=== PATIENT | female | born 1955 | race Caucasian/White ===

== ENCOUNTER 2025-03-01 10:06 | Emergency (ER) | payer OTHER, BC ==
--- NOTE | 2025-03-01 10:51 | ER ---
Nurse's Notes [facility] Name: Radha Esteban Age: 69 yrs Sex: Female : 1955 Arrival Date: 03/01/2025 Time: 10:06 Bed IW2 Private MD: Diagnosis: wound check Presentation: 03/01 10:36 Chief complaint: Patient states: left foot pain post partial left foot amputation aa5 approximately 6 weeks ago, pt reports pain is not getting better. Pt currently taking methocarbamol, Tylenol #3, and gabapentin for pain. Coronavirus screen: At this time, the client does not indicate any symptoms associated with coronavirus-19. Ebola Screen: Patient denies travel to an Ebola-affected area in the 21 days before illness onset. Initial Sepsis Screen: Does the patient meet any 2 criteria? No. Patient's initial sepsis screen is negative. Does the patient have a suspected source of infection? No. Patient's initial sepsis screen is negative. Risk Assessment: Do you want to hurt yourself or someone else? Patient reports no desire to harm self or others. Onset of symptoms was 2024. 10:36 Acuity: CHARLA 4 aa5 10:36 Method Of Arrival: Ambulatory aa5 Historical: - Allergies: 10:39 No Known Allergies; aa5 - Home Meds: 10:39 Brilinta 90 mg oral tablet 2 times per day [Active]; acetaminophen-codeine 300-30 mg aa5 Oral tablet Q6-8hrs PRN [Active]; methocarbamol 750 mg Oral tablet every 8 hours [Active]; gabapentin 600 mg oral tablet 3 times per day [Active]; - PMHx: 10:39 peripheral vascular disease; aa5 - PSHx: 10:39 Left foot partial amputation; aa5 - Immunization history:: Adult Immunizations unknown. - Infectious Disease History:: Denies. - Social history:: Smoking status: Patient reports the use of cigarette tobacco products. Vital Signs: 10:36 BP 161 / 74; Pulse 92; Resp 18 S; Temp 97.8(TE); Pulse Ox 96% on R/A; Weight 70.31 kg aa5 (R); Height 5 ft. 5 in. (R); 10:36 Body Mass Index 25.79 (70.31 kg, 165.1 cm) aa5 ED Course: 10:11 Patient arrived in ED. cj3 10:13 America Woods MD is Attending Physician. sw6 10:36 Arm band placed on. aa5 10:39 Triage completed. aa5 11:02 Fatoumata Woods RN is Primary Nurse. iw Administered Medications: 11: Drug: HYDROcodone-acetaminophen PO 5 mg-325 mg 1 tabs PO once Route: PO; iw Outcome: 10:51 Discharge ordered by . sw6 11:02 Discharged to home via wheelchair, with family, iw 11:02 Condition: good 11:02 Discharge instructions given to patient, family, Instructed on discharge instructions, follow up and referral plans. Demonstrated understanding of instructions, follow-up care, 11:03 Patient left the ED. iw Signatures: Fatoumata Woods RN RN iw Miracle Weaver RN RN aa5 America Woods MD MD sw6 Marielle Cortez cj3
--- NOTE | 2025-03-01 10:51 | EDPHYS ---
Physician Documentation [facility] Name: Radha Esteban Age: 69 yrs Sex: Female : 1955 Arrival Date: 03/01/2025 Time: 10:06 Bed IW2 Private MD: WILMA Physician America Woods HPI: 03/01 10:47 This 69 yrs old Female presents to ER via Ambulatory with complaints of Post sw6 Surgical Complications, Left Foot Pain. 10:47 The patient presents from home for evaluation for left foot pain. She had a sw6 transmetatarsal amputation approximately 6 weeks ago at [facility] by vascular surgery. She did follow-up with them last week and reports things are healing well. She does take gabapentin, Tylenol with codeine as well as Robaxin at home and reports she is still having pain. She has a follow-up appointment with her surgeons next week. No drainage from the wound. No fevers. No history of diabetes or high blood pressure. 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 Here for evaluation.. Historical: - Allergies: 10:39 No Known Allergies; aa5 - Home Meds: 10:39 Brilinta 90 mg oral tablet 2 times per day [Active]; acetaminophen-codeine 300-30 mg aa5 Oral tablet Q6-8hrs PRN [Active]; methocarbamol 750 mg Oral tablet every 8 hours [Active]; gabapentin 600 mg oral tablet 3 times per day [Active]; - PMHx: 10:39 peripheral vascular disease; aa5 - PSHx: 10:39 Left foot partial amputation; aa5 - Immunization history:: Adult Immunizations unknown. - Infectious Disease History:: Denies. - Social history:: Smoking status: Patient reports the use of cigarette tobacco products. ROS: 10:47 MS/extremity: Positive for pain, sw6 10:47 Constitutional: Negative for fever, chills, and weight loss, Cardiovascular: Negative for chest pain, palpitations, and edema, Respiratory: Negative for shortness of breath, cough, wheezing, and pleuritic chest pain, Abdomen/GI: Negative for abdominal pain, nausea, vomiting, diarrhea, and constipation, 10:47 All other systems are negative, Exam: 10:47 Constitutional: This is a well developed, well nourished patient who is awake, alert, sw6 and in no acute distress. Cardiovascular: Regular rate and rhythm with a normal S1 and S2. No gallops, murmurs, or rubs. Normal PMI, no JVD. No pulse deficits. Respiratory: Lungs have equal breath sounds bilaterally, clear to auscultation and percussion. No rales, rhonchi or wheezes noted. No increased work of breathing, no retractions or nasal flaring. 10:47 Skin: Intact wound to her left foot status post transmetatarsal amputation. There is no drainage, warmth or tenderness. There is no fluctuance noted to the wound.. Vital Signs: 10:36 BP 161 / 74; Pulse 92; Resp 18 S; Temp 97.8(TE); Pulse Ox 96% on R/A; Weight 70.31 kg aa5 (R); Height 5 ft. 5 in. (R); 10:36 Body Mass Index 25.79 (70.31 kg, 165.1 cm) aa5 MDM: 10:47 Differential diagnosis: Postoperative pain. sw6 10:47 ED course: The patient presents from home for evaluation for left foot pain status post sw6 transmetatarsal amputation performed approximately 6 weeks ago at [facility] by vascular surgery. She has been following up with them in clinic and they are happy with her progress. She is on gabapentin 600 mg 3 times a day as well as time with codeine and Robaxin for pain. No fevers. No drainage from her wound. Her vitals are stable in the ER. Her wound is intact. She has no drainage or fluctuance noted from her wound. There is no erythema, warmth or swelling noted to her wound. Will give the patient dose of pain medication here in the ER. Recommend she follow-up with her surgeon for continued care. She remained stable here in the ER and is okay for discharge home with PCP follow-up.. 10:51 Medical Screening Exam initiated 10:51 Data reviewed: vital signs, nurses notes. sw6 Administered Medications: 11:02 Drug: HYDROcodone-acetaminophen PO 5 mg-325 mg 1 tabs PO once Route: PO; iw Disposition Summary: 03/01/25 10:51 Discharge Ordered Notes: Location: [facility] Problem: chronic sw6 Symptoms: are unchanged sw6 Condition: Stable sw6 Diagnosis - wound check sw6 Discharge Instructions: - Discharge Summary Sheet sw6 - Wound Care, Adult sw6 Forms: - Medication Reconciliation Form 6 - Antibiotic Education 6 - Prescription Opioid Use sw6 - Patient Portal Instructions 6 - Leadership Thank You Letter Signatures: Fatoumata Woods RN Miracle Billingsley RN RN aa5 America Woods MD MD
[2025-03-01] MEDS ORDERED: HYDROCODONE/APAP 5/325 MG TAB ONE (10:53)
[2025-03-01 11:28] VITALS: BP 161/74; TEMP 97.8; O2SAT 96
== END 2025-03-01 11:03 | disposition home or self-care (01) ==
LOC: ER 10:06
DX: G89.18 Other acute postprocedural pain (principal); Z89.422 Acquired absence of other left toe(s); Z72.0 Tobacco use

== ENCOUNTER 2025-06-26 12:46 | Emergency (ER) | payer OTHER, BC ==
[2025-06-26] MEDS ORDERED: NA CHLORIDE 0.9% 2,000 ML ONE (13:06)
[2025-06-26 13:26] LABS: Absolute Lymphocytes (CBC) 1.8 K/uL (0.7-4.9); Hematocrit 9.8 % (36.0-45.0); MCH 18.2 pg (27.0-35.0); MCHC 27.3 g/dL (32.0-36.0); MCV 66.5 fL (80-100); MPV 7.6 fL (7.6-11.3); Nucleated RBC Absolute Count 0.4 (0-0); Nucleated Red Blood Cells % 3.7 % (0-0); RBC Red Blood Cell Count 1.47 M/uL (3.86-4.86); White Blood Count 11.00 thou/uL (4.3-10.9)
[2025-06-26 13:32] LABS: Hemoglobin 2.7 g/dL (12.0-15.0)
[2025-06-26 13:34] LABS: PT Prothrombin Time 28.9 SECONDS (10-13.0); PTT, Activated Partial Thromb 32.8 SECONDS (27.2-37.4); Protime INR 2.63
[2025-06-26] MEDS ORDERED: NA CHLORIDE 0.9% 1,000 ML ONE (13:45)
[2025-06-26 13:51] LABS: ALT/SGPT 15 U/L (13-56); Albumin 2.7 g/dL (3.4-5.0); Albumin/Globulin Ratio 0.9 (1.1-1.8); Alkaline Phosphatase 128 U/L (45-117); Anion Gap 22.4 mEq/L (5.0-15.0); BUN Blood Urea Nitrogen 32 mg/dL (7-18); Globulin 3.0 g/dL (2.3-3.5); Glucose Level 157 mg/dL (74-106); Lipase 11 U/L (13-75); NT PRO-BNP 1271 pg/mL (<125); Potassium 4.4 mEq/L (3.5-5.1); Troponin High Sensitivity 9.0 pg/mL (<58.9)
[2025-06-26 13:54] LABS: AST/SGOT < 10 U/L (15-37)
--- NOTE | 2025-06-26 14:05 | RAD REPORT ---
EXAM: CT Head Brain Wo Cont HISTORY: AMS COMPARISON: 10/21/2021 TECHNIQUE: Multiple contiguous axial images were obtained for a CT of the brain without contrast. Sag ittal and coronal reformats were performed. One or more of the following dose reduction techniques were used: Automated exposure control, adjus tment of the mA and kV according to patient size, and iterative reconstruction. Unless otherwise specified, incidental findings do not require dedicated imaging follow-up. FINDINGS: No evidence of hydrocephalus, intracranial hemorrhage, or extra-axial fluid collection. Mild brain atrophy with mild periventricular and deep white matter chronic microvascular ischemic ch anges present. Stable hypoattenuating left subinsular focus, could represent a prominent perivascular space or sequelae of remote ischemia. The calvarium is intact. The visualized paranasal sinuses and mastoid air cells are essentially clear . IMPRESSION: No evidence of acute intracranial abnormality. Stable chronic findings as above.
[2025-06-26 14:08] LABS: Influenza A Ag Negative; Influenza B Ag Negative; SARS-CoV-2 Antigen Rapid Res Negative (Negative)
--- NOTE | 2025-06-26 14:19 | RAD REPORT ---
EXAM: CTA Abdomen and Pelvis Angio HISTORY: [facility] MAIN GI BLEED COMPARISON: CT abdomen and pelvis of the same day TECHNIQUE: Multiple contiguous axial images were obtained a CTA of the abdomen and pelvis, performed following IV contrast administration. Sagittal and coronal 3-D MIP reformats were performed. One or more of the following dose reduction techniques were used: Automated exposure control, adjustment of the mA and kV according to patient size, and iterative reconstruction. Unless otherwise specified, incidental findings do not require dedicated imaging follow-up. FINDINGS: LOWER LUNGS: No focal infiltrates or masses. PLEURAL SPACE: No pleural effusion or pneumothorax. LIVER: Unremarkable. Gallbladder is moderately distended with layering hyperdense sludge. Prominent caliber of the common bile duct measuring up to 9 mm. KIDNEYS: Unremarkable. SPLEEN: Unremarkable. PANCREAS: Unremarkable. BOWEL: Unremarkable apart from mild nonspecific fat stranding in the presacral space and mesial recta l fat more so on the right. RETROPERITONEUM: No lymphadenopathy BONES: Degenerative changes in the spine. Disc bulges at L3-4 and L4-5 ABDOMINAL AORTA: Patent, with mild to moderate atherosclerotic plaque1 CELIAC TRUNK: Patent SMA: Patent TERRI: Patent RENAL ARTERIES: Bilateral renal arteries are patent without significant atherosclerotic disease. Acce ssory right renal artery noted. ILIAC ARTERIES: Patent. Postsurgical changes with metallic sutures along the proximal common femoral arteries. IMPRESSION: No hemodynamically significant stenosis or occlusion. Mild to moderate atherosclerotic changes of the aorta. Other findings as detailed above, better evaluated on the CT abdomen and pelvis of the same day.
--- NOTE | 2025-06-26 14:26 | EDPHYS ---
Physician Documentation [facility] Name: Radha sEteban Age: 69 yrs Sex: Female : 1955 Arrival Date: 06/26/2025 Time: 12:46 Bed 16 Private MD: ED Physician Sugar Ambrose HPI: 06/26 13:11 This 69 yrs old Female presents to ER via Wheelchair with complaints of Altered Mental sp3 Status, General Weakness. 13:11 69-year-old female with history of peripheral vascular disease and transmetatarsal sp3 amputation at [facility] by vascular surgery, now presents to the ED with chief complaint altered mental status, generalized weakness, pale skin and low blood pressure. Patient is slow to respond and therefore ROS, history and physical limited. Significant other is at bedside and states that this is not her normal self and she is normally very awake and talkative. The patient does arouse, she denies any dark stools, abdominal pain, vomiting, or any other signs or symptoms other than pain on the left foot. She denies any headache, neck pain or any other symptoms. Again ROS, history physical is limited.. Historical: - Home Meds: 13:00 duloxetine oral 2 times per day [Active]; Eliquis 5 mg oral tablet 2 times per day iw [Active]; Brilinta 90 mg Oral tablet 2 times per day [Active]; acetaminophen-codeine 300-30 mg Oral tablet Q6-8hrs PRN [Active]; gabapentin 600 mg oral tablet 3 times per day [Active]; methocarbamol 500 mg oral tablet 3 times per day [Active]; - PMHx: 13:00 peripheral vascular disease; iw - PSHx: 13:00 left foot partial amputation; iw - Immunization history:: Adult Immunizations up to date. - Infectious Disease History:: Denies. - Social history:: Smoking status: unknown. ROS: 13:13 Unable to obtain ROS due to altered mental status, sp3 Exam: 13:13 Constitutional: The patient appears Patient is tachycardic at 120 with hypotension with sp3 blood pressure in the low 90s systolically. She is slow to respond and extremely pale. 13:13 Unable to obtain exam due to altered mental status, 13:16 ECG was reviewed by the Attending Physician. EKG demonstrates sinus tachycardia at 105 sp3 bpm with normal intervals, normal QRS, normal axis nonspecific diffuse ST/T changes without evidence of acute ischemia. Vital Signs: 12:58 BP 94 / 45; Pulse 118; Resp 16; Pulse Ox 100% on R/A; iw 13:19 BP 89 / 44; Pulse 98; Resp 16; Temp 98.2; Pulse Ox 100% ; Weight 71.67 kg; Height 5 ft. db 5 in. ; 13:30 BP 91 / 44; Pulse 98; Resp 17; Pulse Ox 100% ; db 13:55 BP 83 / 46; Pulse 98; Resp 16; Temp 98.2; Pulse Ox 98% ; db 14:15 BP 95 / 44; Pulse 86; Resp 15; Temp 97.7; Pulse Ox 98% ; db 14:40 BP 107 / 58; Pulse 75; Resp 16; Temp 97.6; Pulse Ox 98% ; db 15:10 BP 96 / 60; Pulse 79; Resp 16; Temp 97.6; Pulse Ox 96% ; db 15:25 BP 112 / 61; Pulse 75; Resp 16; Temp 97.6; Pulse Ox 95% on R/A; db 13:19 Body Mass Index 26.29 (71.67 kg, 165.1 cm) db 13:55 BLOOD TRANSFUSION START db 14:15 1ST UNIT COMPLETE. 2ND UNIT RBC STARTED db 14:40 2ND UNIT RBC COMPLETE db 15:10 3RD UNIT RBC STARTED db 15:25 HAND OFF TO [facility] db Gilles Coma Score: 13:55 Eye Response: to voice(3). Motor Response: obeys commands(6). Verbal Response: db oriented(5). Total: 14. 15:00 Eye Response: spontaneous(4). Motor Response: obeys commands(6). Verbal Response: db oriented(5). Total: 15. MDM: 13:00 Medical Screening Exam initiated sp3 13:13 Data reviewed: vital signs, nurses notes, old medical records, lab test result(s), EKG, sp3 radiologic studies. ED course: 69-year-old female with altered mental status, generalized weakness and pallor with hypotension and tachycardia. Differential diagnosis is broad and includes GI bleed, dehydration, sepsis, electrolyte disturbance, among others. Sepsis bolus has been ordered and full sepsis workup is pending as well as type and screen, CT scan of the head as well as chest abdomen pelvis with IV contrast taking a very broad approach. Disposition pending workup and patient course with probable admission versus transfer depending on final diagnosis.. 13:36 ED course: Hemoglobin at 2.7. 2 units PRBCs emergency release ordered. Will change CT sp3 abdomen pelvis to GI protocol.. 14:47 ED course: Discussed with automatic pad making machine operator at [facility]. We will proceed with sp3 emergency transfer. INR also now back at 2.6 so we will give FFP as well as 2 more units of PRBCs. Vital signs continue to improve. GI is available at [facility] and will be consulted by automatic pad making machine operator team. Patient will be transferred via air ambulance if possible.. 06/26 13:05 Order name: Type And Screen sp3 06/26 13:05 Order name: BNP; Complete Time: 14:01 3 06/26 13:05 Order name: Blood Culture Adult (2) 3 06/26 13:05 Order name: CBC with Diff 3 06/26 13:05 Order name: CMP; Complete Time: 14:01 3 06/26 13:05 Order name: Lactate w/ 2H reflex if indic.; Complete Time: 14:07 sp3 06/26 13:05 Order name: Protime (+inr); Complete Time: 13:35 sp3 06/26 13:05 Order name: Ptt, Activated; Complete Time: 13:35 sp3 06/26 13:05 Order name: Troponin HS; Complete Time: 14:01 sp3 06/26 13:05 Order name: COVID-19 Ag + Flu A+B Ag; Complete Time: 14:14 sp3 06/26 13:06 Order name: Lipase; Complete Time: 14:01 3 06/26 13:08 Order name: Glucose, Ancillary Testing; Complete Time: 13:33 EDMS 06/26 13:40 Order name: Packed RBC Leukored EDDE 06/26 13:40 Order name: RBC Leukored Pheresis EDDE 06/26 14:09 Order name: Ghost Lactate-NO COLLECT Timer EDDE 06/26 14:54 Order name: RBC Leukoreduced (Pheresis 2) EDDE 06/26 15:04 Order name: ABO/RH no charge EDDE 06/26 15:04 Order name: Fresh Frozen Plasma EDDE 06/26 13:05 Order name: CT Head Brain wo Cont; Complete Time: 14:06 sp3 06/26 13:40 Order name: Pelvis Angio; Complete Time: 14:22 EDMS 06/26 13:40 Order name: Abdomen Angio; Complete Time: 14:22 EDMS 06/26 13:40 Order name: Abdomen ; Complete Time: 14:28 EDMS 06/26 13:05 Order name: Cardiac monitoring; Complete Time: 13:40 sp3 06/26 13:05 Order name: EKG - Nurse/Tech; Complete Time: 13:40 sp3 06/26 13:05 Order name: IV Saline Lock - Large Bore; Complete Time: 13:40 sp3 06/26 13:05 Order name: Labs collected and sent; Complete Time: 13:40 sp3 06/26 13:05 Order name: O2 Per Protocol; Complete Time: 13:40 sp3 06/26 13:05 Order name: O2 Sat Monitoring; Complete Time: 13:40 sp3 06/26 13:05 Order name: Vital Signs; Complete Time: 13:40 sp3 06/26 13:05 Order name: NPO; Complete Time: 13:41 sp3 06/26 14:12 Order name: Labs - recollect needed: collect abo\E\rh no charge; Complete Time: 14:34 bd Administered Medications: 13:27 Drug: NS 0.9% IV (30 ml/kg) 30 ml/kg IV at bolus once; Sepsis Protocol; to be given as db a bolus over 90 minutes Route: IV; Rate: bolus; Site: left antecubital; 15:25 Follow up: IV Status: Completed infusion; IV Intake: 2150.1ml db 15:00 Drug: Pantoprazole IV 8 mg/hr IV at 25 ml/hr continuous; (Standard dilution is 80 mg in db 250 mL NS) Route: IV; Rate: 25 ml/hr; Site: left antecubital; 15:25 Follow up: Response: No adverse reaction; IV Status: Infusion continued upon transfer db 15:00 Drug: Pantoprazole IVP 40 mg IVP once Route: IVP; Site: left antecubital; db 15:25 Follow up: Response: No adverse reaction db Disposition: 13:15 Critical Care:. sp3 Disposition Summary: 06/26/25 14:25 Transfer Ordered Notes: Transfer Location: [facility] sp3 Reason: Higher level of care sp3 Condition: Stable sp3 Problem: new sp3 Symptoms: have worsened sp3 Accepting Physician: KEILY FERNANDEZ GI and hospitalist(06/26/25 15:44) db Diagnosis - Critical anemia, probable GI bleed, hypovolemic shock sp3 Forms: - Medication Reconciliation Form sp3 - SBAR form sp3 Critical care time excluding procedures: 13:15 Critical care time: Bedside Care: 10 minutes, Consultation: 10 minutes, Family sp3 Intervention: 10 minutes. Total time: 30 minutes Signatures: Dispatcher [employer] EDMS Mack JessikaFatoumata Guerrero, RN RN iw Schuyler Page RN RN ll1 Sugar Ambrose MD MD sp3 Yumiko Lawrence RN RN Adilia Dahl, PA-C PA-C sb4 Alejandro Rojas, FLOWER CUTTER-C FLOWER CUTTER-Cdr5 Corrections: (The following items were deleted from the chart) 13:05 13:05 PROBNP+C.LAB.BRZ ordered. EDMS EDMS 13:05 13:05 BLOOD CULTURE*+BA.LAB.BRZ ordered. EDMS EDMS 13:05 13:05 CBC+H.LAB.BRZ ordered. EDMS EDMS 13:05 13:05 COMPREHENSIVE METABOLIC PANEL+C.LAB.BRZ ordered. EDMS EDMS 13:06 13:05 LACTATE+C.LAB.BRZ ordered. EDMS EDMS 13:06 13:05 PROTIME (+INR)+COAG.LAB.BRZ ordered. EDMS EDMS 13:06 13:05 PTT, ACTIVATED+COAG.LAB.BRZ ordered. EDMS EDMS 13:06 13:05 Troponin High Sensitivity+C.LAB.BRZ ordered. EDMS EDMS 13:06 13:05 TYPE AND SCREEN+BB.LAB.BRZ ordered. EDMS EDMS 13:06 13:06 Chest Abdomen Pelvis W Con+CT.RAD.BRZ ordered. EDMS EDMS 13:06 13:06 Head Brain Wo Cont+CT.RAD.BRZ ordered. EDMS EDMS 13:06 13:06 UA Rfx Brandon Cult if indicated+U.LAB.BRZ ordered. EDMS EDMS 13:06 13:06 COVID-19 Ag + Flu A+B Ag+I.LAB.BRZ ordered. EDMS EDMS 14:21 13:35 PACKED RBC LEUKORED+BB.LAB.BRZ ordered. EDMS EDMS 14:21 13:38 ABO/RH typing ordered. EDMS EDMS 14:21 13:38 Antibody Screen ordered. EDMS EDMS 14:55 14:55 PACKED RBC LEUKORED+BB.LAB.BRZ ordered. EDMS EDMS 15:03 14:55 FRESH FROZEN PLASMA+BB.LAB.BRZ ordered. EDMS EDMS 15:03 14:57 ABO/RH typing ordered. EDMS EDMS 15:44 14:25 TBD C GI and hospitalist sp3 db
--- NOTE | 2025-06-26 14:26 | ER ---
Nurse's Notes [facility] Name: Radha Esteban Age: 69 yrs Sex: Female : 1955 Arrival Date: 06/26/2025 Time: 12:46 Bed 16 Private MD: Diagnosis: Critical anemia, probable GI bleed, hypovolemic shock Presentation: 06/26 12:58 Chief complaint: Spouse and/or significant other states: very weak and pale since last iw night, could not get herself into the car. Coronavirus screen: At this time, the client does not indicate any symptoms associated with coronavirus-19. Ebola Screen: No symptoms or risks identified at this time. Initial Sepsis Screen: Does the patient meet any 2 criteria? HR > 90 bpm. Does the patient have a suspected source of infection?. Risk Assessment: Do you want to hurt yourself or someone else? Patient reports no desire to harm self or others. 12:58 Method Of Arrival: Wheelchair iw 12:59 Onset of symptoms was June 25, 2025. 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 - Infectious Disease History:: Denies. - Social history:: Smoking status: unknown. Screenin:38 [facility] ED Fall Risk Assessment (Adult) History of falling in the last 3 months, db including since admission No falls in past 3 months (0 pts) Confusion or Disorientation No (0 pts) Intoxicated or Sedated No (0 pts) Impaired Gait No (0 pts) Mobility Assist Device Used No (0 pt) Altered Elimination No (0 pt) Score/Fall Risk Level 0 - 2 = Low Risk Oriented to surroundings, Maintained a safe environment. Abuse screen: Denies threats or abuse. Denies injuries from another. Nutritional screening: No deficits noted. Tuberculosis screening: No symptoms or risk factors identified. Assessment: 13:37 Reassessment: Patient appears in no apparent distress at this time. Patient and/or db family updated on plan of care and expected duration. Pain level reassessed. General: Appears in no apparent distress. uncomfortable, emaciated, Behavior is calm, cooperative, flat. Neuro: Patient appears in no apparent distress at this time. Patient and/or family updated on plan of care and expected duration. Pain level reassessed. Level of Consciousness is obeys commands, lethargic, Oriented to person, place, time, situation. Derm: Skin is pale. 14:40 Reassessment: UNITS 1 AND 2 RBC COMPLETED . SEE BLOOD TRANSFUSION DOCUMENTATION. db 15:00 Reassessment: Patient appears in no apparent distress at this time. Patient and/or db family updated on plan of care and expected duration. Pain level reassessed. Patient is alert, oriented x 3, equal unlabored respirations, skin warm/dry/pink. PATIENT NOW AWAKE WITH COLOR. General: Appears in no apparent distress. comfortable, Behavior is calm, cooperative. Neuro: Level of Consciousness is awake, alert, obeys commands, Oriented to person, place, time, situation. 15:00 Pain: Denies pain. db 15:30 Reassessment: 4 UNITS OF FFPS SIGNED OUT TO [facility] RN. UNIT 3 AND 4 RBC CONTINUED db BY EMS. Vital Signs: 12:58 BP 94 / 45; Pulse 118; Resp 16; Pulse Ox 100% on R/A; iw 13:19 BP 89 / 44; Pulse 98; Resp 16; Temp 98.2; Pulse Ox 100% ; Weight 71.67 kg; Height 5 ft. db 5 in. ; 13:30 BP 91 / 44; Pulse 98; Resp 17; Pulse Ox 100% ; db 13:55 BP 83 / 46; Pulse 98; Resp 16; Temp 98.2; Pulse Ox 98% ; db 14:15 BP 95 / 44; Pulse 86; Resp 15; Temp 97.7; Pulse Ox 98% ; db 14:40 BP 107 / 58; Pulse 75; Resp 16; Temp 97.6; Pulse Ox 98% ; db 15:10 BP 96 / 60; Pulse 79; Resp 16; Temp 97.6; Pulse Ox 96% ; db 15:25 BP 112 / 61; Pulse 75; Resp 16; Temp 97.6; Pulse Ox 95% on R/A; db 13:19 Body Mass Index 26.29 (71.67 kg, 165.1 cm) db 13:55 BLOOD TRANSFUSION START db 14:15 1ST UNIT COMPLETE. 2ND UNIT RBC STARTED db 14:40 2ND UNIT RBC COMPLETE db 15:10 3RD UNIT RBC STARTED db 15:25 HAND OFF TO [facility] db Vitals: 13:19 Cardiac Rhythm Assessment Sinus rhythm. db Victor Coma Score: 13:55 Eye Response: to voice(3). Motor Response: obeys commands(6). Verbal Response: db oriented(5). Total: 14. 15:00 Eye Response: spontaneous(4). Motor Response: obeys commands(6). Verbal Response: db oriented(5). Total: 15. ED Course: 12:49 Patient arrived in ED. mc7 12:51 Sugar Ambrose MD is Attending Physician. sp3 13:00 Triage completed. iw 13:06 Inserted saline lock: 20 gauge in left antecubital area, using aseptic technique. Blood iw collected. Flushed with 10 mL NS. 13:27 sent to lab. Second set of blood cultures drawn EKG done. db 13:[address] via stretcher. db 13:36 Yumiko Lawrence, RN is Primary Nurse. db 13:40 Arm band placed on Patient placed in an exam room. db 13:49 CT Head Brain wo Cont In Process Unspecified. EDMS 13:49 Pelvis Angio In Process Unspecified. EDMS 13:49 Abdomen Angio In Process Unspecified. EDMS 13:49 Abdomen In Process Unspecified. EDMS 13:50 Provided Education on: Blood Transfusion. db 14:00 Client placed on continuous cardiac and pulse oximetry monitoring. NIBP monitoring db applied. wafer production worker on. Pulse ox on. NIBP on. 14:31 initiated transfer to [facility]. bd 15:13 pt accepted in transfer to [facility] by dr Ott admin approval given by dedrick Cm, pt going to [facility] rm 206. 15:25 No provider procedures requiring assistance completed. Patient transferred, IV remains db in place. 15:25 Patient has correct armband on for positive identification. Bed in low position. Call db light in reach. Side rails up X2. Warm blanket given. Pillow given. 15:25 Report given to [facility]. db 15:28 pt will be transported by [facility]. bd Administered Medications: 13:27 Drug: NS 0.9% IV (30 ml/kg) 30 ml/kg IV at bolus once; Sepsis Protocol; to be given as db a bolus over 90 minutes Route: IV; Rate: bolus; Site: left antecubital; 15:25 Follow up: IV Status: Completed infusion; IV Intake: 2150.1ml db 15:00 Drug: Pantoprazole IV 8 mg/hr IV at 25 ml/hr continuous; (Standard dilution is 80 mg in db 250 mL NS) Route: IV; Rate: 25 ml/hr; Site: left antecubital; 15:25 Follow up: Response: No adverse reaction; IV Status: Infusion continued upon transfer db 15:00 Drug: Pantoprazole IVP 40 mg IVP once Route: IVP; Site: left antecubital; db 15:25 Follow up: Response: No adverse reaction db Medication: 15:30 VIS not applicable for this client. Blood products: PRBCs X 4 units given. FFP X 4 db units given. Intake: 15:25 IV: 2150ml; Total: 2150ml. db Outcome: 14:25 ER care complete, transfer ordered by . sp3 15:25 Transferred by helicopter to [facility], Transfer form completed. db X-rays sent w/ patient. 15:25 critical 15:25 Instructed on the need for transfer, 15:31 Patient left the ED. db Signatures: Dispatcher [employer] EDMS Jessika Giron Irene, RN KELLY iw Schuyler Page RN RN ll1 Sugar Ambrose MD MD sp3 Yumiko Lawrence RN RN db Nannette Simon, RN RN mc7 Corrections: (The following items were deleted from the chart) 15:51 13:37 Reassessment: Patient appears in no apparent distress at this time. Patient db and/or family updated on plan of care and expected duration. Pain level reassessed. Patient is alert, oriented x 3, equal unlabored respirations, skin warm/dry/pink. db 15:51 13:37 Neuro: Level of Consciousness is awake, alert, obeys commands, Oriented to db person, place, time, situation, db 17:10 15:44 Patient left the ED. db db
--- NOTE | 2025-06-26 14:27 | RAD REPORT ---
EXAMINATION: CT Abdomen Pelvis Wo Contrast CLINICAL INDICATION: Female, 69 years old. GI BLEED TECHNIQUE: CT abdomen and pelvis was performed, without IV contrast, as per department protocol. Axia l, sagittal and coronal reconstructions were obtained. One or more of the following dose reduction techniques were used: Automated exposure control, adjustment of the mA and kV according to the patien t size, and iterative reconstruction. Unless otherwise specified, incidental findings do not require dedicated imaging follow-up. COMPARISON: CTA abdomen and pelvis of the same day FINDINGS: The lack of intravenous contrast limits the sensitivity of this exam for evaluation of solid visceral organs, vascular structures, and retroperitoneum. LOWER CHEST: The visualized lung bases are clear. LIVER: Normal in size and contour. No focal lesion. BILIARY SYSTEM: Moderately distended gallbladder with no appreciable wall thickening. Layering mildly hyperdense sludge. Prominent caliber of the common bile duct up to 9 mm without radiopaque calculi. SPLEEN: Normal size. No focal lesion. PANCREAS: No mass, ductal dilation, or edwar-pancreatic fluid. ADRENALS: Normal; no mass. KIDNEYS AND URETERS: Normal size and contour. No hydronephrosis. URINARY BLADDER: Normal contour. GASTROINTESTINAL TRACT: No evidence of bowel obstruction, significant free fluid, free air or abscess . Nonspecific fat stranding in the presacral space and mesorectal fat, could relate to nonspecific colitis. Mild distal colonic diverticulosis without evidence of acute diverticulitis. Interrogation o f this exam in conjunction with the CT angiogram performed concomitantly reveals no evidence of extravasation along the bowel. APPENDIX: Appendix not visualized, but no inflammatory changes in region of appendix. LYMPH NODES: No lymphadenopathy. MUSCULOSKELETAL: No acute or suspicious osseous abnormality. ADDITIONAL FINDINGS: None. IMPRESSION: Interrogation of the bowel in conjunction with the CT angiogram performed concomitantly, reveals no e vidence of abnormal contrast extravasation to suggest active bleeding. Prominent caliber of the common bile duct up to 9 mm. No radiopaque calculi. There is concern for a distal obstructing calculus or stricture, additional evaluation by MRCP or ERC P would be more helpful. Nonspecific mild fat stranding in the presacral space and mesorectal fat, could reflect infectious or inflammatory proctitis or distal colitis.
[2025-06-26] MEDS ORDERED: NA CHLORIDE 0.9% 250 ML ONE (14:55)
[2025-06-26] MEDS ORDERED: PANTOPRAZOLE 40 MG INJ ONE (14:55)
[2025-06-26 15:48] VITALS: O2SAT 100
[2025-06-26 15:50] VITALS: TEMP 98.2
[2025-06-26 15:51] VITALS: BP 91/44
[2025-06-26 15:53] LABS: White Blood Cell Scan OK (OK)
[2025-06-26 15:54] LABS: Anisocytosis 1+; Blood Morphology Comment NOTED (NOT SEEN); Hypochromasia 2+; Microcytosis 1+
== END 2025-06-26 15:44 | disposition short-term general hospital (02) ==
LOC: ER 12:46
DX: D64.89 Other specified anemias (principal); R57.1 Hypovolemic shock; I73.9 Peripheral vascular disease, unspecified; Z11.52 Encounter for screening for COVID-19
CPT/HCPCS: 36415; 36430; 70450; 72191; 74174; 74175; 74176; 80053; 82947; 83605; 83690; 83880; 84484; 85025; 85610; 85730; 86850; 86900; 86901; 86920; 87040; 87428; 93005; 96365; 96375; 99285; J2470; J7030; J7040; J7050; P9016; P9017; Q9967